=== PATIENT | male | born 1950 | race Caucasian/White ===

== ENCOUNTER 2023-12-25 14:48 | Outpatient (RCR) | payer MEDICARE, SELFPAY | END 2024-01-12 23:59 | disposition home or self-care (01) | LOC: SCTC 14:48 | PROVIDERS: PCP Physician Assistant; Referring Provider Physician Assistant; Visit Provider Radiology Therapeutic Radiology | DX: Z51.11 Encounter for antineoplastic chemotherapy (principal); C61 Malignant neoplasm of prostate; Z90.79 Acquired absence of other genital organ(s) | CPT/HCPCS: 96402; J9217 ==

== ENCOUNTER → 2023-12-25 | Outpatient (BNVA) | payer MEDICARE, SELFPAY | END | disposition home or self-care (01) | PROVIDERS: PCP Physician Assistant; Referring Provider Physician Assistant; Visit Provider Urology | DX: C61 Malignant neoplasm of prostate (principal); N39.3 Stress incontinence (female) (male); N52.9 Male erectile dysfunction, unspecified; I10 Essential (primary) hypertension; Z86.718 Personal history of other venous thrombosis and embolism | CPT/HCPCS: 81003; 99212; G0463 ==

== ENCOUNTER 2024-03-11 09:32 | Outpatient (RCR) | payer MEDICARE, SELFPAY | END 2024-03-14 23:59 | disposition home or self-care (01) | LOC: SCTC 09:32 | PROVIDERS: PCP Physician Assistant; Referring Provider Physician Assistant; Visit Provider Radiology Therapeutic Radiology | DX: C61 Malignant neoplasm of prostate (principal); Z90.79 Acquired absence of other genital organ(s); Z92.3 Personal history of irradiation; Z79.818 Long term (current) use of other agents affecting estrogen receptors and estrogen levels | CPT/HCPCS: 99213; G0463 ==

== ENCOUNTER → 2024-03-11 | Outpatient (CLI) | payer MEDICARE, SELFPAY ==
[2024-03-11 12:32] LABS: Basophils % (Auto) 1 % (0-2.5); Eosinophils # (Auto) 0.1 Thou/mm3 (0.0-0.5); Eosinophils % (Auto) 2 % (0-10); Hematocrit 42.4 % (41.0-53.0); Hemoglobin 14.2 g/dL (13.5-16.0); Immature Granulocytes % (Auto) 0 % (0-0); Immature Granulocytes Auto 0.01 Thou/mm3 (0.00-0.00); Lymphocytes # (Auto) 0.7 Thou/mm3 (1.0-4.8); Lymphocytes % (Auto) 16 % (10-50); Mean Corpuscular HGB Conc 33.5 g/dl (31.0-37.0); Mean Corpuscular Hemoglobin 31.5 pg (25.0-35.0); Mean Corpuscular Volume 94 fL (80-100); Monocytes # (Auto) 0.4 Thou/mm3 (0.0-0.8); Monocytes % (Auto) 9 % (0-12); Neutrophils # (Auto) 3.1 Thou/mm3 (1.8-7.7); Neutrophils % (Auto) 72 % (37-80); Nucleated Red Blood Cell % 0 /100 WBC (0); Platelet Count 244 Thou/mm3 (140-440); RDW Standard Deviation 42.6 fL (35.1-43.9); Red Blood Count 4.51 Miln/mm3 (4.50-5.90); White Blood Count 4.3 Thou/mm3 (3.8-10.6)
[2024-03-11 13:11] LABS: Alanine Aminotransferase 15 U/L (10-49); Albumin, Serum 4.4 gm/dL (3.4-4.8); Albumin/Globulin Ratio 2.3 (1.2-2.2); Alkaline Phosphatase 115 U/L (46-116); Anion Gap 9 (7-16); Aspartate Amino Transferase 18 U/L (0-34); BUN/Creatinine Ratio 19 Ratio (12-20); Bilirubin,Total 0.7 mg/dL (0.3-1.2); Blood Urea Nitrogen 21 mg/dL (9-23); Calcium 9.6 mg/dL (8.3-10.6); Calcium (Corrected) 9.6 mg/dL (8.5-10.1); Carbon Dioxide 27.1 mMol/L (20.0-31.0); Chloride 104 mMol/L (98-107); Creatinine (Component) 1.1 mg/dL (0.6-1.3); Globulin 1.9 gm/dL (2.3-3.5); Glucose 95 mg/dL (74-106); Osmolality,Calculated 282 (275-295); Potassium 4.4 mMol/L (3.4-5.1); Sodium 140 mMol/L (136-145); Total Protein 6.3 gm/dL (5.7-8.2); eGFR > 60 See Note
[2024-03-11 13:31] LABS: Prostate Specific Antigen 0.13 ng/mL (0-4.00)
== END | disposition home or self-care (01) ==
LOC: SCTO 11:01
PROVIDERS: PCP Family Medicine; Referring Provider Radiology Therapeutic Radiology; Visit Provider Radiology Therapeutic Radiology
DX: C61 Malignant neoplasm of prostate (principal)
CPT/HCPCS: 36415; 80053; 84153; 85025

== ENCOUNTER 2024-04-02 09:02 | Outpatient (RCR) | payer MEDICARE, SELFPAY | END 2024-04-11 23:59 | disposition home or self-care (01) | LOC: SCTC 09:02 | PROVIDERS: PCP Family Medicine; Referring Provider Family Medicine; Visit Provider Radiology Therapeutic Radiology | DX: Z51.11 Encounter for antineoplastic chemotherapy (principal); C61 Malignant neoplasm of prostate; Z90.79 Acquired absence of other genital organ(s); Z92.3 Personal history of irradiation; Z79.818 Long term (current) use of other agents affecting estrogen receptors and estrogen levels | CPT/HCPCS: 96402; 99213; J9217; G0463 ==

== ENCOUNTER → 2024-05-05 | Outpatient (CLI) | payer MEDICARE, SELFPAY ==
--- NOTE | 2024-05-05 16:54 | XR_ITS ---
Examination: Knee, left , 3 views Technique: Knee AP, lateral, oblique 3 views Date and time of exam: May 05, 2024 at 1549 hours INDICATION: Left knee pain 3 days getting worse FINDINGS: Moderate osteopenia Advanced tricompartment osteoarthritis No fracture or dislocation Moderate knee effusion IMPRESSION: Advanced tricompartment osteoarthritis
== END | disposition home or self-care (01) ==
LOC: CDIM 16:49
PROVIDERS: PCP Physician Assistant; Referring Provider Physician Assistant; Visit Provider Physician Assistant
DX: M17.12 Unilateral primary osteoarthritis, left knee (principal)
CPT/HCPCS: 73562

== ENCOUNTER → 2024-05-15 | Outpatient (CLI) | payer MEDICARE, SELFPAY ==
[2024-05-15 16:50] LABS: Collection Type, Urine Clean Catch; Squamous Epithelial Cell,Urine 0 /hpf (0-5)
[2024-05-15 17:01] LABS: Basophils % (Auto) 1 % (0-2.5); Eosinophils # (Auto) 0.1 Thou/mm3 (0.0-0.5); Eosinophils % (Auto) 1 % (0-10); Hematocrit 39.3 % (41.0-53.0); Hemoglobin 13.5 g/dL (13.5-16.0); Immature Granulocytes % (Auto) 1 % (0-0); Immature Granulocytes Auto 0.03 Thou/mm3 (0.00-0.00); Lymphocytes # (Auto) 0.6 Thou/mm3 (1.0-4.8); Lymphocytes % (Auto) 10 % (10-50); Mean Corpuscular HGB Conc 34.4 g/dl (31.0-37.0); Mean Corpuscular Hemoglobin 32.5 pg (25.0-35.0); Mean Corpuscular Volume 95 fL (80-100); Monocytes # (Auto) 0.6 Thou/mm3 (0.0-0.8); Monocytes % (Auto) 10 % (0-12); Neutrophils # (Auto) 4.5 Thou/mm3 (1.8-7.7); Neutrophils % (Auto) 78 % (37-80); Nucleated Red Blood Cell % 0 /100 WBC (0); Platelet Count 256 Thou/mm3 (140-440); RDW Standard Deviation 43.8 fL (35.1-43.9); Red Blood Count 4.15 Miln/mm3 (4.50-5.90); White Blood Count 5.8 Thou/mm3 (3.8-10.6)
[2024-05-15 17:09] LABS: INR 2.2 (0.9-1.3); Partial Thromboplastin Time 45.8 Seconds (22.0-36.0); Prothrombin Time 22.6 Seconds (9.0-12.2)
[2024-05-15 17:20] LABS: Prostate Specific Antigen 0.11 ng/mL (0-4.00)
[2024-05-15 17:20] LABS: Bacteria,Urine Rare; Bilirubin,Urine Negative (Negative); Blood,Urine Negative (Negative); Clarity,Urine Clear (Clear/Hazy); Color,Urine Yellow (Lt Yel-Yel); Culture Indicated,Urine Not Indicated; Glucose, Urine Negative (Negative); Ketones,Urine 1+ (Negative); Leukocyte Esterase,Urine Negative (Negative); Nitrite,Urine Negative (Negative); PH,Urine 5.5 (5.0-7.0); Protein,Urine Trace (Neg - Trace); RBC,Urine 2 /hpf (0-3); Specific Gravity,Urine 1.033 (1.001-1.035); Urobilinogen,Urine Negative mg/dL (0.0-1.0); WBC,Urine 1 /hpf (0-5)
[2024-05-15 17:25] LABS: Vitamin B12 230 pg/mL (211-911); Vitamin D 25 Hydroxy Total 37.6 ng/mL (7.3-40.2)
[2024-05-15 17:28] LABS: Alanine Aminotransferase 18 U/L (10-49); Albumin, Serum 3.9 gm/dL (3.4-4.8); Alkaline Phosphatase 110 U/L (46-116); Anion Gap 8 (7-16); Aspartate Amino Transferase 19 U/L (0-34); BUN/Creatinine Ratio 17 Ratio (12-20); Bilirubin,Total 0.8 mg/dL (0.3-1.2); Blood Urea Nitrogen 17 mg/dL (9-23); Calcium 9.1 mg/dL (8.3-10.6); Calcium (Corrected) 9.2 mg/dL (8.5-10.1); Carbon Dioxide 29.3 mMol/L (20.0-31.0); Cardiac Risk Estimate 3.5 RATIO (4.0-6.7); Chloride 105 mMol/L (98-107); Cholesterol 180 mg/dL (132-200); Glucose 86 mg/dL (74-106); HDL Cholesterol 51 mg/dL (40-60); LDL Cholesterol,Calculated 82 mg/dL (0-130); Osmolality,Calculated 283 (275-295); Potassium 4.7 mMol/L (3.4-5.1); Sodium 142 mMol/L (136-145); Thyroid Stimulating Hormone 0.53 uIU/mL (0.55-4.78); Total Protein 5.9 gm/dL (5.7-8.2); Triglycerides 236 mg/dL (30-150); eGFR > 60 See Note
== END | disposition home or self-care (01) ==
LOC: COPL 15:43
PROVIDERS: PCP Physician Assistant; Referring Provider Physician Assistant; Visit Provider Physician Assistant
DX: Z00.00 Encounter for general adult medical examination without abnormal findings (principal); C61 Malignant neoplasm of prostate; E55.9 Vitamin D deficiency, unspecified; E78.5 Hyperlipidemia, unspecified; Z86.718 Personal history of other venous thrombosis and embolism
CPT/HCPCS: 36415; 80053; 80061; 81001; 82306; 82607; 84153; 84443; 85025; 85610; 85730

== ENCOUNTER → 2024-06-20 | Outpatient (CLI) | payer MEDICARE, SELFPAY ==
[2024-06-20 12:21] LABS: Prothrombin Time 15.7 Seconds (9.0-12.2)
[2024-06-20 13:56] LABS: INR 1.5 (0.9-1.3)
[2024-06-22 13:49] LABS: Cocci Serology, IgM Negative (Negative)
[2024-06-23 14:09] LABS: Cocci Serology, IgG Negative (Negative)
== END | disposition home or self-care (01) ==
PROVIDERS: PCP Family Medicine; Referring Provider Physician Assistant; Visit Provider Physician Assistant
DX: B38.9 Coccidioidomycosis, unspecified (principal); Z86.718 Personal history of other venous thrombosis and embolism
CPT/HCPCS: 36415; 85610; 85730; 86331; 86635

== ENCOUNTER 2024-06-25 11:14 | Outpatient (RCR) | payer MEDICARE, SELFPAY ==
--- NOTE | 2024-06-19 09:37 | CTCFLWUP_ITS ---
[facility] [address] [place], [place] [address] FOLLOW-UP NOTE Date: 06/19/2024 MR#: [id number] Name: SAULO RAJAN : 1950 Dx: C61 Malignant neoplasm of prostate Identification. Patient with pT3b N1c of the prostate status post robotic assisted radical prostatectomy 11/22/2022 at [facility]. PSA noted to be rising to 0.27 on 02/19/2023. Radiation therapy VMAT 6840 cGy 03/29/2023 through 05/24/2023 with concomitant Lupron injections initiated March 26, 2023 and has had 4 injections thus far about a years worth. 1 additional injection scheduled for next week. Patient has been taking calcium and vitamin D. Patient's last 2 PSAs as risen slightly 0.13 1 28 25 and 0.11 on 05/15/2024. Patient is scheduled to see Dr. Lin next month, likely a second-generation antiandrogen to be added. Clinically is doing reasonably well with pelvic symptoms have improved with no pain symptoms. I will see him as needed in the future. Electronically signed by: Richmond Dunn M.D. 06/19/2024 9:35 AM
== END 2024-07-12 23:59 | disposition home or self-care (01) ==
LOC: SCTC 11:14
PROVIDERS: PCP Physician Assistant; Referring Provider Physician Assistant; Visit Provider Radiology Therapeutic Radiology
DX: Z51.11 Encounter for antineoplastic chemotherapy (principal); C61 Malignant neoplasm of prostate; Z90.79 Acquired absence of other genital organ(s); Z92.3 Personal history of irradiation
CPT/HCPCS: 96402; 99213; J9217; G0463

== ENCOUNTER → 2024-07-21 | Outpatient (BNVA) | payer MEDICARE, SELFPAY | END | disposition home or self-care (01) | PROVIDERS: PCP Physician Assistant; Referring Provider Physician Assistant; Visit Provider Urology | DX: C61 Malignant neoplasm of prostate (principal); N39.3 Stress incontinence (female) (male); Z92.3 Personal history of irradiation; E66.9 Obesity, unspecified; Z68.27 Body mass index [BMI] 27.0-27.9, adult; I10 Essential (primary) hypertension; Z86.718 Personal history of other venous thrombosis and embolism | CPT/HCPCS: 81003; 99212; G0463 ==

== ENCOUNTER → 2024-07-21 | Outpatient (CLI) | payer MEDICARE, SELFPAY ==
[2024-07-21 09:14] LABS: Basophils % (Auto) 1 % (0-2.5); Eosinophils # (Auto) 0.1 Thou/mm3 (0.0-0.5); Eosinophils % (Auto) 2 % (0-10); Hematocrit 40.5 % (41.0-53.0); Hemoglobin 13.5 g/dL (13.5-16.0); Immature Granulocytes % (Auto) 0 % (0-0); Immature Granulocytes Auto 0.01 Thou/mm3 (0.00-0.00); Lymphocytes # (Auto) 0.7 Thou/mm3 (1.0-4.8); Lymphocytes % (Auto) 18 % (10-50); Mean Corpuscular HGB Conc 33.3 g/dl (31.0-37.0); Mean Corpuscular Hemoglobin 31.5 pg (25.0-35.0); Mean Corpuscular Volume 95 fL (80-100); Monocytes # (Auto) 0.4 Thou/mm3 (0.0-0.8); Monocytes % (Auto) 9 % (0-12); Neutrophils % (Auto) 70 % (37-80); Nucleated Red Blood Cell % 0 /100 WBC (0); Platelet Count 181 Thou/mm3 (140-440); RDW Standard Deviation 43.6 fL (35.1-43.9); Red Blood Count 4.28 Miln/mm3 (4.50-5.90); White Blood Count 4.2 Thou/mm3 (3.8-10.6)
[2024-07-21 09:21] LABS: INR 2.3 (0.9-1.3); Partial Thromboplastin Time 45.9 Seconds (22.0-36.0); Prothrombin Time 24.2 Seconds (9.0-12.2)
[2024-07-21 09:30] LABS: Prostate Specific Antigen < 0.10 ng/mL (0-4.00)
[2024-07-21 09:36] LABS: Alanine Aminotransferase 14 U/L (10-49); Albumin, Serum 4.2 gm/dL (3.4-4.8); Albumin/Globulin Ratio 2.2 (1.2-2.2); Alkaline Phosphatase 111 U/L (46-116); Anion Gap 10 (7-16); BUN/Creatinine Ratio 28 Ratio (12-20); Bilirubin,Total 0.3 mg/dL (0.3-1.2); Blood Urea Nitrogen 22 mg/dL (9-23); Calcium 9.3 mg/dL (8.3-10.6); Calcium (Corrected) 9.3 mg/dL (8.5-10.1); Carbon Dioxide 28.4 mMol/L (20.0-31.0); Chloride 104 mMol/L (98-107); Creatinine (Component) 0.8 mg/dL (0.6-1.3); Globulin 1.9 gm/dL (2.3-3.5); Glucose 107 mg/dL (74-106); Osmolality,Calculated 286 (275-295); Potassium 3.9 mMol/L (3.4-5.1); Sodium 142 mMol/L (136-145); Total Protein 6.1 gm/dL (5.7-8.2); eGFR > 60 See Note
== END | disposition home or self-care (01) ==
PROVIDERS: PCP Physician Assistant; Referring Provider Radiology Therapeutic Radiology; Visit Provider Radiology Therapeutic Radiology
DX: C61 Malignant neoplasm of prostate (principal); Z86.718 Personal history of other venous thrombosis and embolism
CPT/HCPCS: 36415; 80053; 84153; 85025; 85610; 85730

== ENCOUNTER 2024-07-22 10:32 | Outpatient (RCR) | payer MEDICARE, SELFPAY ==
--- NOTE | 2024-07-27 23:47 | CTCFLWUP_ITS ---
Patient: SAULO RAJAN : 1950 Page 8 of 10 FOLLOW UP NOTE DATE OF SERVICE: 07/22/2024 NAME: SAULO RAJAN ACCOUNT: [id number] : 1950 AGE: 73 INTERVAL HISTORY: Subjective: Chief Complaint Follow-up for prostate cancer treatment, testicular swelling, ill-fitting dentures affecting nutrition History of Present Illness Mr. Lauren Romero, a patient with a history of prostate cancer, presents for follow-up of his oncological care. He underwent a robotic radical prostatectomy and radiation therapy due to lymphovascular and perineural invasion, completing treatment in January 2023. The patient reports a recent increase in his PSA level to 0.23, which has been identified as biochemical failure. He has been on Lupron (leuprolide for depot) injections since December 2022, which were initially prescribed for a duration of two years. The patient's last PET-CT scan in 2023 showed no suspicious lesions or enlarged lymph nodes, indicating remission. However, a 2.6 cm tumor was observed in the right testis on an ultrasound in 2022, for which observation was recommended over orchidectomy. Mr. Romero mentions difficulty with nutrition due to ill-fitting dentures, which affects his ability to chew food properly. He expresses concern about potential lip shrinkage due to the absence of teeth. The patient also reports testicular swelling, which requires further evaluation with another ultrasound. The patient has not seen an oncologist since 2022 and has been receiving care from a radiation doctor. His Keely score was 7-8, indicating a relatively good prognosis despite being classified as high-risk prostate cancer. The patient's prostate cancer was staged as 4A due to lymph node involvement, but there was no bone metastasis. Medications and Supplements - Lupron (leuprolide for depot) - Started in December 2022. - Used for prostate cancer treatment. - PSA was less than 0.1, indicating remission for prostate cancer. Review of Systems HEENT: Positive for difficulty chewing without dentures. Gastrointestinal: Positive for difficulty absorbing nutrition due to poor chewing. Genitourinary: Positive for testicular swelling. Objective: Laboratory, Imaging, and Diagnostic Test Results - Date: 2022 - Ultrasound: 2.6 cm tumor in the right testis - PSA: < 0.1 - Date: 2023 - PET-CT scan: No suspicious lesions or enlarged lymph nodes - Previous results: - PSA: 0.23 (date not specified) - PSMA PET scan (date not specified): One lymph node positive ONCOLOGY HISTORY: DIAGNOSIS: Stage Sim (pT3b, N1, M0) prostate cancer. 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 REASON FOR TODAY?S VISIT: This is office follow-up visit. Mr. Rajan is here at [facility]. Since last visit he had bilateral testicle ultrasound done which showed a complex right testicular mass with peripheral vascularity measuring 2.6 x 1.8 x 2.2 cm in size. Mr. Rajan is contemplating on having bilateral orchiectomy. He has an appointment to have the surgery done on 02/21/[address] Brewster. In the meantime patient also has an appointment to be seen at [facility] tomorrow for second opinion. He has decided not to have Lupron injections and cancel all appointments. Previous PET/CT scan done at [facility] on 11/17/2022 showed multiple hepatic hypodensities measuring up to 3.[address] with contrast is recommended. Malignant neoplasm of prostate [ICD10] C61 DATE OF DIAGNOSIS: 07/06/2022 STAGE/TNM: Stage Sim TREATMENT HISTORY: Care?Plan Start?Date Cycle Day Intent Lupron?22.5?mg?q?3?mon 01/09/2023 1 90 Curative?(adjuvant) HISTORY OF PRESENT ILLNESS: The patient is a 73-year-old male with history of multiple both lower extremity DVTs about 20 years ago currently on long-term anticoagulation with warfarin was recently diagnosed with prostatic adenocarcinoma. 07/07/2020: PSA 2.96. 10/07/2021: PSA 3.61 06/07/2022: PSA 4.15. 07/06/2022: Prostate biopsy was performed due to a PSA of 4.15.? 08/17/2022: PET/CT scan? 08/21/2022: Mr. Rajan had bone scan 10/23/2022: Mr. Rajan had robotic assisted radical prostatectomy and bilateral pelvic lymph node dissection 11/17/2022: PET/CT scan at [facility] radiology clinic that 12/28/2022: PSA 0.13 05/13/2022: Bilateral testicular ultrasound? 01/23/2023: PSA 0.34. OTHER MEDICAL HISTORY/CONDITIONS: Prostate cancer - dx 07/06/22 DVT - multiple DVT's - first about 20yrs ago Left hip replacement- 2019 Right hip replacement - 2014 Fracture left hip with rodding - Cholecystectomy 10yrs ago FAMILY HISTORY: Patient?denies?family?cancer?history. 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 Tobacco?Use:?Denies ETOH?Use:?Socailly Drug?Note:?Denies Social?History?Note:?Lives?with?brother MEDICATIONS: 1. abiraterone - 250 mg 4 tab Daily 2. Calcium + D - 600 mg(1,500mg) -200 unit 2 tab Daily 3. multivitamin - 1 tab Daily 4. prednisone - 5 mg 1 tab Daily 5. warfarin - 5 mg 1 tab Daily 6. Zytiga - 250 mg 4 tab Daily Medications Last Reconciled by Yumiko Felipe MA on 07/22/2024 ALLERGIES: REVIEW OF SYSTEMS: A complete 14-point review of systems was performed and is negative except as noted in interval history. PHYSICAL EXAMINATION: VITAL SIGNS: Temperature?99.8, B/P?134/77, Oxygen?Saturation?99% PAIN: 0 - No pain ECOG Performance Status: 0 - Asymptomatic and fully active GENERAL APPEARANCE: Appears well, in no apparent distress, appropriately interactive. HEENT: Normocephalic, no temporal wasting, normal conjunctiva, no scleral icterus, normal hearing, lips without lesions, neck normal range of motion. CARDIOVASCULAR: Not assessed. PULMONARY: Normal respiratory effort, no respiratory distress or use of accessory muscles, speaking in full sentences, no tachypnea. EXTREMITIES: No pedal edema or cyanosis. SKIN: Normal skin appearance. NEUROLOGIC: Alert and oriented x4. PSHYCHIATRIC: Appropriate affect, mood normal, behavior normal, intact thought and speech. LABORATORY DATA: I have personally reviewed and interpreted each of the patient?s relevant lab tests, abnormal findings are below: Date 05/15/24 07/21/24 ??WHITE?BLOOD?COUNT?(Thou/mm3) 5.8 4.2 ??RED?BLOOD?COUNT?(Miln/mm3) 4.15?L 4.28?L ??HEMOGLOBIN?(gm/dl) 13.5 13.5 ??HEMATOCRIT?(%) 39.3?L 40.5?L ??PLATELET?COUNT?(Thou/mm3) 256 181 ??NEUTROPHILS?%,?AUTO?(%) 78 70 ??LYMPH?%,?AUTO?(%) 10 18 ??NEUTROPHILS,?AUTO?(Thou/mm3) 4.5 3.0 ??GLUCOSE,RANDOM?(mg/dL) 86 107?H ??BLOOD?UREA?NITROGEN?(mg/dL) 17 22 ??CREATININE?(mg/dL) 1.00 0.80 ??SODIUM?(mmol/L) 142 142 ??POTASSIUM?(mmol/L) 4.7 3.9 ??CHLORIDE?(mmol/L) 105 104 ??CrCl?(CandG)?(ml/min) 74.21 105.96 ??AST/SGOT?(Unit/L) 19 ? ??ALT/SGPT?(Unit/L) 18 14 ??ALKALINE?PHOSPHATASE?(Unit/L) 110 111 ??BILIRUBIN,?TOTAL?(mg/dL) 0.8 0.3 ??PROTEIN?TOTAL?(gm/dl) 5.9 6.1 ??ALBUMIN,?SERUM?(gm/dl) 3.9 4.2 ??GLOBULIN?(gm/dl) 2.0?L 1.9?L ??ALBUMIN/GLOBULIN?RATIO 2.0 2.2 ??CALCIUM,?SERUM?(mg/dL) 9.1 9.3 ??CALCIUM?SERUM?(CORRECTED)?(mg/dL) 9.2 9.3 ASSESSMENT/PLAN: PSA has increased to 0.34 on 01/23/2023. Mr. Rajan is scheduled to have an consultation at [facility] tomorrow for second opinion. Mr. Rajan is also scheduled to have bilateral orchiectomy on 02/21/[address] scan of the abdomen and pelvis with contrast to better visualize the hepatic hypodensities. Will see Mr. Rajan back in clinic here in 4 weeks with another PSA done prior to the visit. Assessment and Plan: Lauren Romero, male patient with a history of high-risk prostate cancer, status post robotic radical prostatectomy and radiation therapy, currently in remission and on Lupron (leuprolide) therapy. Prostate Cancer Stage Sim (pT3b, M1, cM0) prostatic adenocarcinoma. Very high risk group. S/p robotic radical prostatectomy and pelvic lymph node dissection as documented above which showed T3b, N1 Durant score 8, grade group 4 prostatic adenocarcinoma with lymphovascular invasion as well as perineural invasion being positive. Bilateral seminal vesicle invasion as well as extraprostatic e xtension present. Patient has a history of high-risk prostate cancer with a Keely score of 7-8. He underwent robotic radical prostatectomy and lymph node removal, with one lymph node showing cancer. Due to lymphovascular and perineural invasion, he also received radiation therapy. Treatment was completed in January 2023. The patient has been on Lupron (leuprolide for depot) since December 2022. The last PET-CT scan in 2023 showed no suspicious lesions or enlarged lymph nodes, indicating remission. Recent PSA was less than 0.1, but has since increased to 0.23, suggesting biochemical failure. Plan: - Continue Lupron (leuprolide for depot) until December 2024, then discontinue depending on PSMA PET scan results in January 2025 - Prescribe Zytiga for 6 months - Monitor PSA levels every 2-3 months - Schedule PSMA PET scan in January 2025 - Follow up in January 2025 to review PET scan results and reassess treatment plan Testicular Mass Assessment: PET scan done at [facility] on 11/17/2022 showed multiple hepatic hypodensities as documented above. Bilateral testicular ultrasound done on 01/12/2023 showed a right testicular mass measuring 2.6 x 1.8 x 2.2 cm Patient had an ultrasound in 2022 showing a 2.6 cm tumor in the right testis. Observation was recommended rather than orchidectomy. The testicular swelling may be related to the radiation treatment for prostate cancer, which could have affected the testes. Plan: - Order repeat ultrasound to reassess testicular swelling History of bilateral lower extremity DVTs currently on indefinite anticoagulation with warfarin Nutritional Concerns Assessment: Patient reports difficulty with nutrition due to ill-fitting dentures, which affects proper food chewing and absorption. Plan: - Recommend protein shakes for nutritional supplementation - Suggest consideration of new dentures or dental implants ORDERS: Order # Description [id number] PSA RETURN TO CLINIC: BILLING AND COMPLIANCE: I reviewed external records from providers outside my specialty as summarized above. I spent a total of 50 minutes on this patient?s care on the day of their visit excluding time spent related to any billed procedures. This time includes time spent with the patient as well as time spent documenting in the medical record, reviewing patients records and tests, obtaining history, placing orders, communicating with other healthcare professionals, counseling the patient, family or caregiver, and/or care coordination for the diagnoses above. Electronically Signed by: Mir Sheikh MD T: 11:45 PM CC: PCP: Hailey Romero Referring: Hailey Romero This document was completed utilizing speech recognition software. Grammatical errors, random word insertions, pronoun errors, and incomplete sentences are an occasional consequence of this system due to software limitations, ambient noise, and hardware issues. Any formal questions or concerns about the content, text or information contained within the body of this dictation should be directly addressed to the provider for clarification.
== END 2024-08-11 23:59 | disposition home or self-care (01) ==
LOC: SCTC 10:32
PROVIDERS: PCP Physician Assistant; Referring Provider Physician Assistant; Visit Provider Internal Medicine Hematology & Oncology
DX: C61 Malignant neoplasm of prostate (principal); Z90.79 Acquired absence of other genital organ(s); Z79.818 Long term (current) use of other agents affecting estrogen receptors and estrogen levels; N50.89 Other specified disorders of the male genital organs; Z86.718 Personal history of other venous thrombosis and embolism; Z79.01 Long term (current) use of anticoagulants; Z71.3 Dietary counseling and surveillance
CPT/HCPCS: 99212; G0463

== ENCOUNTER → 2024-08-13 | Outpatient (CLI) | payer MEDICARE, SELFPAY ==
--- NOTE | 2024-08-13 10:00 | XR_ITS ---
Examination: Testicular sonography complete TECHNIQUE: Grayscale sonographic images testes, assessment arterial inflow venous outflow, Doppler spectral analysis carful analysis Date and time: August 13, 2024 1017 hours Comparison July 30, 2023 INDICATIONS: Right testicular masses, 6 x 4 x 4 mm, 8 x 3 x 4 mm on testicular sonogram July 30, 2023 FINDINGS: Right testis 3.1 cm epididymis 0.8 cm Mid anterior testicle calcified nodule 4 x 4 millimeter Arterial flow testicle Lateral moderate varicocele Left testis 3.0 cm epididymis 0.9 cm Testicular cysts, 3 x 3 mm, 4 x 4 millimeter No solid testicular mass Arterial flow testicle. Moderate varicocele IMPRESSION: Mid anterior right testicular calcified nodule 4 x 4 millimeter
[2024-08-13 11:43] LABS: INR 1.2 (0.9-1.3); Partial Thromboplastin Time 31.8 Seconds (22.0-36.0); Prothrombin Time 13.0 Seconds (9.0-12.2)
== END | disposition home or self-care (01) ==
PROVIDERS: PCP Physician Assistant; Referring Provider Internal Medicine Hematology & Oncology; Visit Provider Internal Medicine Hematology & Oncology
DX: N50.89 Other specified disorders of the male genital organs (principal); C61 Malignant neoplasm of prostate; Z86.718 Personal history of other venous thrombosis and embolism
CPT/HCPCS: 36415; 76870; 85610; 85730

== ENCOUNTER → 2024-09-30 | Outpatient (CLI) | payer MEDICARE, SELFPAY ==
[2024-09-30 09:21] LABS: Basophils # (Auto) 0.0 Thou/mm3 (0.0-0.2); Basophils % (Auto) 1 % (0-2.5); Eosinophils # (Auto) 0.0 Thou/mm3 (0.0-0.5); Eosinophils % (Auto) 1 % (0-10); Hematocrit 39.5 % (41.0-53.0); Hemoglobin 13.1 g/dL (13.5-16.0); Immature Granulocytes Auto 0.01 Thou/mm3 (0.00-0.00); Lymphocytes # (Auto) 0.8 Thou/mm3 (1.0-4.8); Lymphocytes % (Auto) 22 % (10-50); Mean Corpuscular HGB Conc 33.2 g/dl (31.0-37.0); Mean Corpuscular Hemoglobin 31.6 pg (25.0-35.0); Mean Corpuscular Volume 95 fL (80-100); Monocytes # (Auto) 0.4 Thou/mm3 (0.0-0.8); Monocytes % (Auto) 10 % (0-12); Neutrophils # (Auto) 2.4 Thou/mm3 (1.8-7.7); Neutrophils % (Auto) 66 % (37-80); Nucleated Red Blood Cell # 0.00 Thou/mm3 (0.00-0.00); Nucleated Red Blood Cell % 0 /100 WBC (0); Platelet Count 187 Thou/mm3 (140-440); RDW Standard Deviation 44.4 fL (35.1-43.9); Red Blood Count 4.14 Miln/mm3 (4.50-5.90); White Blood Count 3.7 Thou/mm3 (3.8-10.6)
[2024-09-30 09:31] LABS: Prostate Specific Antigen < 0.10 ng/mL (0-4.00)
[2024-09-30 09:33] LABS: Alanine Aminotransferase 21 U/L (10-49); Albumin, Serum 3.9 gm/dL (3.4-4.8); Albumin/Globulin Ratio 2.2 (1.2-2.2); Alkaline Phosphatase 101 U/L (46-116); Anion Gap 8 (7-16); Aspartate Amino Transferase 27 U/L (0-34); BUN/Creatinine Ratio 15 Ratio (12-20); Bilirubin,Total 0.8 mg/dL (0.3-1.2); Blood Urea Nitrogen 12 mg/dL (9-23); Calcium 9.5 mg/dL (8.3-10.6); Calcium (Corrected) 9.6 mg/dL (8.5-10.1); Carbon Dioxide 27.8 mMol/L (20.0-31.0); Chloride 110 mMol/L (98-107); Creatinine (Component) 0.8 mg/dL (0.6-1.3); Globulin 1.8 gm/dL (2.3-3.5); Glucose 96 mg/dL (74-106); Osmolality,Calculated 290 (275-295); Potassium 3.8 mMol/L (3.4-5.1); Sodium 146 mMol/L (136-145); Total Protein 5.7 gm/dL (5.7-8.2); eGFR > 60 See Note
== END | disposition home or self-care (01) ==
LOC: SCTO 07:39
PROVIDERS: PCP Family Medicine; Referring Provider Internal Medicine Hematology & Oncology; Visit Provider Internal Medicine Hematology & Oncology
DX: C61 Malignant neoplasm of prostate (principal)
CPT/HCPCS: 36415; 80053; 84153; 85025

== ENCOUNTER 2024-10-02 11:40 | Outpatient (RCR) | payer MEDICARE, SELFPAY ==
--- NOTE | 2024-10-02 12:22 | CTCFLWUP_ITS ---
Patient: SAULO RAJAN : 1950 Page 8 of 10 FOLLOW UP NOTE DATE OF SERVICE: 10/02/2024 NAME: SAULO RAJAN ACCOUNT: [id number] : 1950 AGE: 74 INTERVAL HISTORY: Subjective: Chief Complaint Follow-up for prostate cancer treatment, and testicular swelling . History of Present Illness Mr. Lauren Romero, a patient with a history of prostate cancer, presents for follow-up of his oncological care. He underwent a robotic radical prostatectomy and radiation therapy due to lymphovascular and perineural invasion, completing treatment in January 2023. The patient reports a recent increase in his PSA level to 0.23, which has been identified as biochemical failure. He has been on Lupron (leuprolide for depot) injections since December 2022, which were initially prescribed for a duration of two years. The patient's last PET-CT scan in 2023 showed no suspicious lesions or enlarged lymph nodes, indicating remission. However, a 2.6 cm tumor was observed in the right testis on an ultrasound in 2022, for which observation was recommended over orchidectomy. Mr. Romero mentions difficulty with nutrition due to ill-fitting dentures, which affects his ability to chew food properly. He expresses concern about potential lip shrinkage due to the absence of teeth. The patient also reports testicular swelling, which requires further evaluation with another ultrasound. The patient has not seen an oncologist since 2022 and has been receiving care from a radiation doctor. His Keely score was 7-8, indicating a relatively good prognosis despite being classified as high-risk prostate cancer. The patient's prostate cancer was staged as 4A due to lymph node involvement, but there was no bone metastasis. Medications and Supplements - Lupron (leuprolide for depot) - Started in December 2022. - Used for prostate cancer treatment. - PSA was less than 0.1, indicating remission for prostate cancer. Review of Systems HEENT: Positive for difficulty chewing without dentures. Gastrointestinal: Positive for difficulty absorbing nutrition due to poor chewing. Genitourinary: Positive for testicular swelling. Objective: Laboratory, Imaging, and Diagnostic Test Results - Date: 2022 - Ultrasound: 2.6 cm tumor in the right testis - PSA: < 0.1 - Date: 2023 - PET-CT scan: No suspicious lesions or enlarged lymph nodes - Previous results: - PSA: 0.23 (date not specified) - PSMA PET scan (date not specified): One lymph node positive ONCOLOGY HISTORY:?Clone[facility] Oncology Hx? DIAGNOSIS: Stage Sim (pT3b, N1, M0) prostate cancer. 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 REASON FOR TODAY?S VISIT: This is office follow-up visit. Mr. Rajan is here at [facility]. Since last visit he had bilateral testicle ultrasound done which showed a complex right testicular mass with peripheral vascularity measuring 2.6 x 1.8 x 2.2 cm in size. Mr. Rajan is contemplating on having bilateral orchiectomy. He has an appointment to have the surgery done on 02/21/[address] Brewster. In the meantime patient also has an appointment to be seen at [facility] tomorrow for second opinion. He has decided not to have Lupron injections and cancel all appointments. Previous PET/CT scan done at [facility] at [facility] on 11/17/2022 showed multiple hepatic hypodensities measuring up to 3.[address] with contrast is recommended. Malignant neoplasm of prostate [ICD10] C61 DATE OF DIAGNOSIS: 07/06/2022 STAGE/TNM: Stage Sim TREATMENT HISTORY: Care?Plan Start?Date Cycle Day Intent Lupron?22.5?mg?q?3?mon 01/09/2023 1 90 Curative?(adjuvant) HISTORY OF PRESENT ILLNESS: The patient is a 74-year-old male with history of multiple both lower extremity DVTs about 20 years ago currently on long-term anticoagulation with warfarin was recently diagnosed with prostatic adenocarcinoma. 07/07/2020: PSA 2.96. 10/07/2021: PSA 3.61 06/07/2022: PSA 4.15. 07/06/2022: Prostate biopsy was performed due to a PSA of 4.15.? 08/17/2022: PET/CT scan? 08/21/2022: Mr. Rajan had bone scan 10/23/2022: Mr. Rajan had robotic assisted radical prostatectomy and bilateral pelvic lymph node dissection 11/17/2022: PET/CT scan at [facility] radiology clinic that 12/28/2022: PSA 0.13 05/13/2022: Bilateral testicular ultrasound? 01/23/2023: PSA 0.34. OTHER MEDICAL HISTORY/CONDITIONS: Prostate cancer - dx 07/06/22 DVT - multiple DVT's - first about 20yrs ago Left hip replacement- 2019 Right hip replacement - 2014 Fracture left hip with rodding - Cholecystectomy 10yrs ago FAMILY HISTORY: Patient?denies?family?cancer?history. 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 Tobacco?Use:?Denies ETOH?Use:?Socailly Drug?Note:?Denies Social?History?Note:?Lives?with?brother MEDICATIONS: 1. abiraterone - 250 mg 4 tab Daily 2. Calcium + D - 600 mg(1,500mg) -200 unit 2 tab Daily 3. multivitamin - 1 tab Daily 4. prednisone - 5 mg 1 tab Daily 5. warfarin - 5 mg 1 tab Daily?Palabra Meds? Medications Last Reconciled by Yumiko Felipe MA on 10/02/2024 ALLERGIES: REVIEW OF SYSTEMS: A complete 14-point review of systems was performed and is negative except as noted in interval history. PHYSICAL EXAMINATION:?CloneBlock PE? VITAL SIGNS: GENERAL APPEARANCE: Appears well, in no apparent distress, appropriately interactive. HEENT: Normocephalic, no temporal wasting, normal conjunctiva, no scleral icterus, normal hearing, lips without lesions, neck normal range of motion. CARDIOVASCULAR: Not assessed. PULMONARY: Normal respiratory effort, no respiratory distress or use of accessory muscles, speaking in full sentences, no tachypnea. EXTREMITIES: No pedal edema or cyanosis. SKIN: Normal skin appearance. NEUROLOGIC: Alert and oriented x4. PSHYCHIATRIC: Appropriate affect, mood normal, behavior normal, intact thought and speech. LABORATORY DATA: I have personally reviewed and interpreted each of the patient?s relevant lab tests, abnormal findings are below: Date 07/21/24 09/30/24 ??WHITE?BLOOD?COUNT?(Thou/mm3) 4.2 3.7?L ??RED?BLOOD?COUNT?(Miln/mm3) 4.28?L 4.14?L ??HEMOGLOBIN?(gm/dl) 13.5 13.1?L ??HEMATOCRIT?(%) 40.5?L 39.5?L ??PLATELET?COUNT?(Thou/mm3) 181 187 ??NEUTROPHILS?%,?AUTO?(%) 70 66 ??LYMPH?%,?AUTO?(%) 18 22 ??NEUTROPHILS,?AUTO?(Thou/mm3) 3.0 2.4 ??GLUCOSE,RANDOM?(mg/dL) 107?H 96 ??BLOOD?UREA?NITROGEN?(mg/dL) 22 12 ??CREATININE?(mg/dL) 0.80 0.80 ??SODIUM?(mmol/L) 142 146?H ??POTASSIUM?(mmol/L) 3.9 3.8 ??CHLORIDE?(mmol/L) 104 110?H ??CrCl?(CandG)?(ml/min) 105.96 96.36 ??AST/SGOT?(Unit/L) ? 27 ??ALT/SGPT?(Unit/L) 14 21 ??ALKALINE?PHOSPHATASE?(Unit/L) 111 101 ??BILIRUBIN,?TOTAL?(mg/dL) 0.3 0.8 ??PROTEIN?TOTAL?(gm/dl) 6.1 5.7 ??ALBUMIN,?SERUM?(gm/dl) 4.2 3.9 ??GLOBULIN?(gm/dl) 1.9?L 1.8?L ??ALBUMIN/GLOBULIN?RATIO 2.2 2.2 ??CALCIUM,?SERUM?(mg/dL) 9.3 9.5 ??CALCIUM?SERUM?(CORRECTED)?(mg/dL) 9.3 9.6 ASSESSMENT/PLAN:?Peter Sheikh Assessment/Plan? Lauren Romero, male patient with a history of high-risk prostate cancer, status post robotic radical prostatectomy and radiation therapy, currently in remission and on Lupron (leuprolide) therapy. Prostate Cancer Stage Sim (pT3b, M1, cM0) prostatic adenocarcinoma. Very high risk group. S/p robotic radical prostatectomy and pelvic lymph node dissection as documented above which showed T3b, N1 Keely score 8, grade group 4 prostatic adenocarcinoma with lymphovascular invasion as well as perineural invasion being positive. Bilateral seminal vesicle invasion as well as extraprostatic e xtension present. Patient has a history of high-risk prostate cancer with a Cowgill score of 7-8. He underwent robotic radical prostatectomy and lymph node removal, with one lymph node showing cancer. Due to lymphovascular and perineural invasion, he also received radiation therapy. Treatment was completed in January 2023. The patient has been on Lupron (leuprolide for depot) since December 2022. The last PET-CT scan in 2023 showed no suspicious lesions or enlarged lymph nodes, indicating remission. - Continue Lupron (leuprolide for depot) until December 2024, then discontinue depending on PSMA PET scan results in January 2025 Continue Zytiga for 6 months - Monitor PSA levels every 2-3 months - Schedule PSMA PET scan in January 2025 - Follow up in January 2025 to review PET scan results and reassess treatment plan Testicular Mass Ultrasouns shows 4 by 4 m mass only Discussed with dr blair, he follows patient closely and do not believe it to be cance r? History of bilateral lower extremity DVTs currently on indefinite anticoagulation with warfarin Nutritional Concerns Assessment: Patient reports difficulty with nutrition due to ill-fitting dentures, which affects proper food chewing and absorption. Plan: - Recommend protein shakes for nutritional supplementation - Suggest consideration of new dentures or dental implants ORDERS: Order # Description [id number] + PSA + Comprehensive Metabolic Panel - 12 + CBC with Auto Diff + MD Follow Up 6 Month [id number] Testosterone; Total [id number] MD Follow Up 3 Months [id number] PSA RETURN TO CLINIC: I reviewed the diagnosis, prognosis, and recommended treatment/procedure options with the patient (and/or their legal outside dealer sales representative), including the potential benefits, risks, side effects and alternative therapies. We also discussed the option of no treatment and the possibility of clinical trial participation, if applicable. All questions were addressed, and they demonstrated understanding. They provided informed consent to proceed with the proposed plan of care. BILLING AND COMPLIANCE: I reviewed external records from providers outside my specialty as summarized above. I spent a total of 50 minutes on this patient?s care on the day of their visit excluding time spent related to any billed procedures. This time includes time spent with the patient as well as time spent documenting in the medical record, reviewing patients records and tests, obtaining history, placing orders, communicating with other healthcare professionals, counseling the patient, family or caregiver, and/or care coordination for the diagnoses above. Electronically Signed by: Mir Sheikh MD T: 12:20 PM CC: PCP: Hailey Romero Referring: Hailey Romero This document was completed utilizing speech recognition software. Grammatical errors, random word insertions, pronoun errors, and incomplete sentences are an occasional consequence of this system due to software limitations, ambient noise, and hardware issues. Any formal questions or concerns about the content, text or information contained within the body of this dictation should be directly addressed to the provider for clarification.
== END 2024-10-12 23:59 | disposition home or self-care (01) ==
LOC: SCTC 11:40
PROVIDERS: PCP Physician Assistant; Referring Provider Physician Assistant; Visit Provider Internal Medicine Hematology & Oncology
DX: Z51.11 Encounter for antineoplastic chemotherapy (principal); C61 Malignant neoplasm of prostate; N50.89 Other specified disorders of the male genital organs; Z90.79 Acquired absence of other genital organ(s); Z92.3 Personal history of irradiation
CPT/HCPCS: 96402; 99212; J9217; G0463

== ENCOUNTER → 2024-12-19 | Outpatient (CLI) | payer MEDICARE, SELFPAY ==
[2024-12-19 14:20] LABS: Basophils # (Auto) 0.0 Thou/mm3 (0.0-0.2); Basophils % (Auto) 0 % (0-2.5); Eosinophils # (Auto) 0.0 Thou/mm3 (0.0-0.5); Eosinophils % (Auto) 0 % (0-10); Hematocrit 39.6 % (41.0-53.0); Hemoglobin 13.6 g/dL (13.5-16.0); Immature Granulocytes Auto 0.03 Thou/mm3 (0.00-0.00); Lymphocytes # (Auto) 0.5 Thou/mm3 (1.0-4.8); Lymphocytes % (Auto) 8 % (10-50); Mean Corpuscular HGB Conc 34.3 g/dl (31.0-37.0); Mean Corpuscular Hemoglobin 32.3 pg (25.0-35.0); Mean Corpuscular Volume 94 fL (80-100); Monocytes # (Auto) 0.3 Thou/mm3 (0.0-0.8); Monocytes % (Auto) 5 % (0-12); Neutrophils # (Auto) 6.0 Thou/mm3 (1.8-7.7); Neutrophils % (Auto) 87 % (37-80); Nucleated Red Blood Cell # 0.00 Thou/mm3 (0.00-0.00); Nucleated Red Blood Cell % 0 /100 WBC (0); Platelet Count 224 Thou/mm3 (140-440); RDW Standard Deviation 43.3 fL (35.1-43.9); Red Blood Count 4.21 Miln/mm3 (4.50-5.90); White Blood Count 6.9 Thou/mm3 (3.8-10.6)
[2024-12-19 14:32] LABS: INR 1.1 (0.9-1.3); Partial Thromboplastin Time 33.6 Seconds (22.0-36.0); Prothrombin Time 11.8 Seconds (9.0-12.2)
[2024-12-19 14:33] LABS: Prostate Specific Antigen < 0.10 ng/mL (0-4.00)
[2024-12-19 14:36] LABS: Alanine Aminotransferase 52 U/L (10-49); Albumin, Serum 4.2 gm/dL (3.4-4.8); Albumin/Globulin Ratio 2.3 (1.2-2.2); Alkaline Phosphatase 107 U/L (46-116); Anion Gap 10 (7-16); Aspartate Amino Transferase 44 U/L (0-34); BUN/Creatinine Ratio 14 Ratio (12-20); Bilirubin,Total 1.4 mg/dL (0.3-1.2); Blood Urea Nitrogen 13 mg/dL (9-23); Calcium 9.0 mg/dL (8.3-10.6); Calcium (Corrected) 9.0 mg/dL (8.5-10.1); Carbon Dioxide 27.3 mMol/L (20.0-31.0); Cardiac Risk Estimate 3.1 RATIO (4.0-6.7); Chloride 108 mMol/L (98-107); Cholesterol 166 mg/dL (132-200); Creatinine (Component) 0.9 mg/dL (0.6-1.3); Globulin 1.8 gm/dL (2.3-3.5); Glucose 109 mg/dL (74-106); HDL Cholesterol 53 mg/dL (40-60); LDL Cholesterol,Calculated 86 mg/dL (0-130); Osmolality,Calculated 289 (275-295); Potassium 4.0 mMol/L (3.4-5.1); Sodium 145 mMol/L (136-145); Thyroid Stimulating Hormone 0.46 uIU/mL (0.55-4.78); Total Protein 6.0 gm/dL (5.7-8.2); Triglycerides 136 mg/dL (30-150); eGFR > 60 See Note
[2024-12-29 07:03] LABS: Testosterone,Total* 2 ng/dL (250-1100)
== END | disposition home or self-care (01) ==
LOC: COPL 13:35
PROVIDERS: PCP Family Medicine; Referring Provider Internal Medicine Hematology & Oncology; Visit Provider Physician Assistant
DX: E78.5 Hyperlipidemia, unspecified (principal); R94.6 Abnormal results of thyroid function studies; C61 Malignant neoplasm of prostate; Z86.718 Personal history of other venous thrombosis and embolism
CPT/HCPCS: 36415; 80053; 80061; 84153; 84403; 84443; 85025; 85610; 85730

== ENCOUNTER 2024-12-29 10:52 | Outpatient (RCR) | payer MEDICARE, SELFPAY ==
--- NOTE | 2024-12-29 13:20 | CTCFLWUP_ITS ---
Patient: SAULO RAJAN : 1950 Page 2 of 2 FOLLOW UP NOTE DATE OF SERVICE: 12/29/2024 NAME: SAULO RAJAN ACCOUNT: [id number] : 1950 AGE: 74 INTERVAL HISTORY: Subjective: Chief Complaint Follow-up for prostate cancer treatment, and testicular swelling . Patient is taking his Zytiga and prednisone as prescribed. Patient has been taking this for last 1 year. Patient also takes his calcium and vitamin D3. History of Present Illness Mr. Lauren Romero, a patient with a history of prostate cancer, presents for follow-up of his oncological care. He underwent a robotic radical prostatectomy and radiation therapy due to lymphovascular and perineural invasion, completing treatment in January 2023. The patient reports a recent increase in his PSA level to 0.23, which has been identified as biochemical failure. He has been on Lupron (leuprolide for depot) injections since December 2022, which were initially prescribed for a duration of two years. The patient's last PET-CT scan in 2023 showed no suspicious lesions or enlarged lymph nodes, indicating remission. However, a 2.6 cm tumor was observed in the right testis on an ultrasound in 2022, for which observation was recommended over orchidectomy. Mr. Romero mentions difficulty with nutrition due to ill-fitting dentures, which affects his ability to chew food properly. He expresses concern about potential lip shrinkage due to the absence of teeth. The patient also reports testicular swelling, which requires further evaluation with another ultrasound. The patient has not seen an oncologist since 2022 and has been receiving care from a radiation doctor. His Mahopac score was 7-8, indicating a relatively good prognosis despite being classified as high-risk prostate cancer. The patient's prostate cancer was staged as 4A due to lymph node involvement, but there was no bone metastasis. Medications and Supplements - Lupron (leuprolide for depot) - Started in December 2022. - Used for prostate cancer treatment. - PSA was less than 0.1, indicating remission for prostate cancer. Review of Systems HEENT: Positive for difficulty chewing without dentures. Gastrointestinal: Positive for difficulty absorbing nutrition due to poor chewing. Genitourinary: Positive for testicular swelling. Objective: Laboratory, Imaging, and Diagnostic Test Results - Date: 2022 - Ultrasound: 2.6 cm tumor in the right testis - PSA: < 0.1 - Date: 2023 - PET-CT scan: No suspicious lesions or enlarged lymph nodes - Previous results: - PSA: 0.23 (date not specified) - PSMA PET scan (date not specified): One lymph node positive ONCOLOGY HISTORY:?[facility]one[facility] Oncology Hx? DIAGNOSIS: Stage Sim (pT3b, N1, M0) prostate cancer. 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 REASON FOR TODAY?S VISIT: This is office follow-up visit. Mr. Rajan is here at [facility]. Since last visit he had bilateral testicle ultrasound done which showed a complex right testicular mass with peripheral vascularity measuring 2.6 x 1.8 x 2.2 cm in size. Mr. Rajan is contemplating on having bilateral orchiectomy. He has an appointment to have the surgery done on 02/21/[address] Brewster. In the meantime patient also has an appointment to be seen at [facility] tomorrow for second opinion. He has decided not to have Lupron injections and cancel all appointments. Previous PET/CT scan done at [facility] on 11/17/2022 showed multiple hepatic hypodensities measuring up to 3.[address] with contrast is recommended. Malignant neoplasm of prostate [ICD10] C61 DATE OF DIAGNOSIS: 07/06/2022 STAGE/TNM: Stage Sim TREATMENT HISTORY: Care?Plan Start?Date Cycle Day Intent Lupron?22.5?mg?q?3?mon 01/09/2023 1 90 Curative?(adjuvant) Reclast 12/29/2024 1 365 Palliative HISTORY OF PRESENT ILLNESS: The patient is a 74-year-old male with history of multiple both lower extremity DVTs about 20 years ago currently on long-term anticoagulation with warfarin was recently diagnosed with prostatic adenocarcinoma. 07/07/2020: PSA 2.96. 10/07/2021: PSA 3.61 06/07/2022: PSA 4.15. 07/06/2022: Prostate biopsy was performed due to a PSA of 4.15.? 08/17/2022: PET/CT scan? 08/21/2022: Mr. Rajan had bone scan 10/23/2022: Mr. Rajan had robotic assisted radical prostatectomy and bilateral pelvic lymph node dissection 11/17/2022: PET/CT scan at [facility] radiology clinic that 12/28/2022: PSA 0.13 05/13/2022: Bilateral testicular ultrasound? 01/23/2023: PSA 0.34. OTHER MEDICAL HISTORY/CONDITIONS: Prostate cancer - dx 07/06/22 DVT - multiple DVT's - first about 20yrs ago Left hip replacement- 2019 Right hip replacement - 2014 Fracture left hip with rodding - Cholecystectomy 10yrs ago FAMILY HISTORY: Patient?denies?family?cancer?history. 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 Tobacco?Use:?Denies ETOH?Use:?Socailly Drug?Note:?Denies Social?History?Note:?Lives?with?brother MEDICATIONS: 1. abiraterone - 250 mg 4 tab Daily 2. Calcium + D - 600 mg(1,500mg) -200 unit 2 tab Daily 3. Lax Stool Softener With Senna - 8.6-50 mg 2 tab Daily 4. multivitamin - 1 tab Daily 5. prednisone - 5 mg 1 tab Daily 6. warfarin - 5 mg 1 tab Daily?Palabra Meds? Medications Last Reconciled by Yumiko Ty MD on 12/29/2024 ALLERGIES: REVIEW OF SYSTEMS: A complete 14-point review of systems was performed and is negative except as noted in interval history. PHYSICAL EXAMINATION:?CloneBlock PE? VITAL SIGNS: Temperature?97.4, B/P?144/80, Oxygen?Saturation?98% Weight?191?lbs (Change?since?12/24/24:?0?lbs) PAIN: 0 - No pain ECOG Performance Status: 0 - Asymptomatic and fully active GENERAL APPEARANCE: Appears well, in no apparent distress, appropriately interactive. HEENT: Normocephalic, no temporal wasting, normal conjunctiva, no scleral icterus, normal hearing, lips without lesions, neck normal range of motion. CARDIOVASCULAR: Not assessed. PULMONARY: Normal respiratory effort, no respiratory distress or use of accessory muscles, speaking in full sentences, no tachypnea. EXTREMITIES: No pedal edema or cyanosis. SKIN: Normal skin appearance. NEUROLOGIC: Alert and oriented x4. PSHYCHIATRIC: Appropriate affect, mood normal, behavior normal, intact thought and speech. LABORATORY DATA: I have personally reviewed and interpreted each of the patient?s relevant lab tests, abnormal findings are below: Date 09/30/24 12/19/24 ??WHITE?BLOOD?COUNT?(Thou/mm3) 3.7?L 6.9 ??RED?BLOOD?COUNT?(Miln/mm3) 4.14?L 4.21?L ??HEMOGLOBIN?(gm/dl) 13.1?L 13.6 ??HEMATOCRIT?(%) 39.5?L 39.6?L ??PLATELET?COUNT?(Thou/mm3) 187 224 ??NEUTROPHILS?%,?AUTO?(%) 66 87?H ??LYMPH?%,?AUTO?(%) 22 8?L ??NEUTROPHILS,?AUTO?(Thou/mm3) 2.4 6.0 ??GLUCOSE,RANDOM?(mg/dL) 96 109?H ??BLOOD?UREA?NITROGEN?(mg/dL) 12 13 ??CREATININE?(mg/dL) 0.80 0.90 ??SODIUM?(mmol/L) 146?H 145 ??POTASSIUM?(mmol/L) 3.8 4.0 ??CHLORIDE?(mmol/L) 110?H 108?H ??CrCl?(CandG)?(ml/min) 96.36 85.12 ??AST/SGOT?(Unit/L) 27 44?H ??ALT/SGPT?(Unit/L) 21 52?H ??ALKALINE?PHOSPHATASE?(Unit/L) 101 107 ??BILIRUBIN,?TOTAL?(mg/dL) 0.8 1.4?H ??PROTEIN?TOTAL?(gm/dl) 5.7 6.0 ??ALBUMIN,?SERUM?(gm/dl) 3.9 4.2 ??GLOBULIN?(gm/dl) 1.8?L 1.8?L ??ALBUMIN/GLOBULIN?RATIO 2.2 2.3?H ??CALCIUM,?SERUM?(mg/dL) 9.5 9.0 ??CALCIUM?SERUM?(CORRECTED)?(mg/dL) 9.6 9.0 ASSESSMENT/PLAN:?Peter Sheikh Assessment/Plan? Lauren Romero, male patient with a history of high-risk prostate cancer, status post robotic radical prostatectomy and radiation therapy, currently in remission and on Lupron (leuprolide) therapy. Prostate Cancer Stage Sim (pT3b, M1, cM0) prostatic adenocarcinoma. Very high risk group. S/p robotic radical prostatectomy and pelvic lymph node dissection as documented above which showed T3b, N1 Keely score 8, grade group 4 prostatic adenocarcinoma with lymphovascular invasion as well as perineural invasion being positive. Bilateral seminal vesicle invasion as well as extraprostatic e xtension present. Patient has a history of high-risk prostate cancer with a Mahopac score of 7-8. He underwent robotic radical prostatectomy and lymph node removal, with one lymph node showing cancer. Due to lymphovascular and perineural invasion, he also received radiation therapy. Treatment was completed in January 2023. The patient has been on Lupron (leuprolide for depot) since December 2022. The last PET-CT scan in 2023 showed no suspicious lesions or enlarged lymph nodes, indicating remission. - Continue Lupron (leuprolide for depot) until December 2024, then discontinue depending on PSMA PET scan results in January 2025 Continue Zytiga for 6 months - Monitor PSA levels every 2-3 months - Schedule PSMA PET scan in January 2025 - Follow up in January 2025 to review PET scan results and reassess treatment plan Testicular Mass Ultrasouns shows 4 by 4 m mass only Discussed with dr blair, he follows patient closely and do not believe it to be cance r? History of bilateral lower extremity DVTs currently on indefinite anticoagulation with warfarin Nutritional Concerns Assessment: Patient reports difficulty with nutrition due to ill-fitting dentures, which affects proper food chewing and absorption. Plan: - Recommend protein shakes for nutritional supplementation - Suggest consideration of new dentures or dental implants Will get bone density Patient have dentures If clinically no lesions in mouth we will proceed with Zometa every 6 months to strengthen his bones ORDERS: Order # Description [id number] DXA L-Spine and Hip [id number] CBC + Comprehensive Metabolic Panel [id number] Lab Appointment [id number] PSA [id number] PET/CT of Skull to mid-thigh for Restaging [id number] CBC + Comprehensive Metabolic Panel [id number] Lab Appointment [id number] CBC + Comprehensive Metabolic Panel [id number] Lab Appointment [id number] CBC + Comprehensive Metabolic Panel [id number] Lab Appointment [id number] CBC + Comprehensive Metabolic Panel [id number] Lab Appointment [id number] CBC + Comprehensive Metabolic Panel [id number] Lab Appointment RETURN TO CLINIC: I reviewed the diagnosis, prognosis, and recommended treatment/procedure options with the patient (and/or their legal physician relations representative), including the potential benefits, risks, side effects and alternative therapies. We also discussed the option of no treatment and the possibility of clinical trial participation, if applicable. All questions were addressed, and they demonstrated understanding. They provided informed consent to proceed with the proposed plan of care. BILLING AND COMPLIANCE: I reviewed external records from providers outside my specialty as summarized above. I spent a total of 50 minutes on this patient?s care on the day of their visit excluding time spent related to any billed procedures. This time includes time spent with the patient as well as time spent documenting in the medical record, reviewing patients records and tests, obtaining history, placing orders, communicating with other healthcare professionals, counseling the patient, family or caregiver, and/or care coordination for the diagnoses above. Electronically Signed by: Mir Sheikh MD T: 1:18 PM CC: PCP: Chidi Helms Referring: Chidi Helms This document was completed utilizing speech recognition software. Grammatical errors, random word insertions, pronoun errors, and incomplete sentences are an occasional consequence of this system due to software limitations, ambient noise, and hardware issues. Any formal questions or concerns about the content, text or information contained within the body of this dictation should be directly addressed to the provider for clarification.
== END 2025-01-11 23:59 | disposition home or self-care (01) ==
LOC: SCTC 10:52
PROVIDERS: PCP Family Medicine; Referring Provider Family Medicine; Visit Provider Internal Medicine Hematology & Oncology
DX: Z51.11 Encounter for antineoplastic chemotherapy (principal); C61 Malignant neoplasm of prostate; Z90.79 Acquired absence of other genital organ(s); Z92.3 Personal history of irradiation; N50.89 Other specified disorders of the male genital organs; Z86.718 Personal history of other venous thrombosis and embolism; Z79.01 Long term (current) use of anticoagulants
CPT/HCPCS: 96402; 99212; J9217; G0463

== ENCOUNTER → 2025-01-26 | Outpatient (CLI) | payer MEDICARE, SELFPAY ==
[2025-01-26 13:16] LABS: Basophils # (Auto) 0.0 Thou/mm3 (0.0-0.2); Basophils % (Auto) 0 % (0-2.5); Eosinophils # (Auto) 0.0 Thou/mm3 (0.0-0.5); Eosinophils % (Auto) 0 % (0-10); Hematocrit 39.1 % (41.0-53.0); Hemoglobin 13.0 g/dL (13.5-16.0); Immature Granulocytes Auto 0.01 Thou/mm3 (0.00-0.00); Lymphocytes # (Auto) 0.5 Thou/mm3 (1.0-4.8); Lymphocytes % (Auto) 7 % (10-50); Mean Corpuscular HGB Conc 33.2 g/dl (31.0-37.0); Mean Corpuscular Hemoglobin 32.0 pg (25.0-35.0); Mean Corpuscular Volume 96 fL (80-100); Monocytes # (Auto) 0.4 Thou/mm3 (0.0-0.8); Monocytes % (Auto) 5 % (0-12); Neutrophils # (Auto) 5.9 Thou/mm3 (1.8-7.7); Neutrophils % (Auto) 87 % (37-80); Nucleated Red Blood Cell # 0.00 Thou/mm3 (0.00-0.00); Nucleated Red Blood Cell % 0 /100 WBC (0); Platelet Count 213 Thou/mm3 (140-440); RDW Standard Deviation 45.2 fL (35.1-43.9); Red Blood Count 4.06 Miln/mm3 (4.50-5.90); White Blood Count 6.8 Thou/mm3 (3.8-10.6)
[2025-01-26 13:21] LABS: INR 1.1 (0.9-1.3); Partial Thromboplastin Time 30.7 Seconds (22.0-36.0); Prothrombin Time 11.2 Seconds (9.0-12.2)
[2025-01-26 13:23] LABS: Alanine Aminotransferase 57 U/L (10-49); Albumin, Serum 4.2 gm/dL (3.4-4.8); Albumin/Globulin Ratio 2.1 (1.2-2.2); Alkaline Phosphatase 102 U/L (46-116); Anion Gap 8 (7-16); Aspartate Amino Transferase 37 U/L (0-34); BUN/Creatinine Ratio 20 Ratio (12-20); Bilirubin,Total 0.9 mg/dL (0.3-1.2); Blood Urea Nitrogen 16 mg/dL (9-23); Calcium 9.5 mg/dL (8.3-10.6); Calcium (Corrected) 9.5 mg/dL (8.5-10.1); Carbon Dioxide 31.2 mMol/L (20.0-31.0); Chloride 108 mMol/L (98-107); Creatinine (Component) 0.8 mg/dL (0.6-1.3); Globulin 2.0 gm/dL (2.3-3.5); Glucose 81 mg/dL (74-106); Osmolality,Calculated 292 (275-295); Potassium 3.9 mMol/L (3.4-5.1); Sodium 147 mMol/L (136-145); Total Protein 6.2 gm/dL (5.7-8.2); eGFR > 60 See Note
[2025-01-26 13:39] LABS: Prostate Specific Antigen < 0.10 ng/mL (0-4.00)
== END | disposition home or self-care (01) ==
LOC: SCTO 11:58
PROVIDERS: PCP Physician Assistant; Referring Provider Internal Medicine Hematology & Oncology; Visit Provider Internal Medicine Hematology & Oncology
DX: C61 Malignant neoplasm of prostate (principal); Z86.718 Personal history of other venous thrombosis and embolism
CPT/HCPCS: 36415; 80053; 84153; 85025; 85610; 85730